=== PATIENT | male | born 1990 | race Caucasian/White ===

== ENCOUNTER 2017-05-31 06:13 | Day surgery (SDC) | payer OTHER ==
[2017-05-30 09:59] VITALS: BMI 26.9
[2017-05-31] MEDS ORDERED: COCAINE HCL 4% TOPICAL SOLUTION 4 ML BOTTLE TP ONE ×2 (07:25→08:37)
[2017-05-31] MEDS ORDERED: LIDOCAINE 1%/EPI 1:100000 (20 ML MULTI DOSE VIAL) ONE (07:26)
[2017-05-31] MEDS ORDERED: BACITRACIN 15 GM TUBE TOPICAL OINTMENT ONE (07:27)
--- NOTE | 2017-05-31 08:02 | HP ---
Admitting History and Physical - Admission Chief Complaint: Nasal congestion, chronic History of Present Illness: He has had multiple meds and is not significantly allergic. 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, enlarged turbinates and maxillary sinus inflammation History Source: Patient, Medical Record Limitations to Obtaining History: No Limitations - Past Medical History Psych: Yes: Depression ENT: Yes: Other (Nasal blockage) - Smoking History Smoking history: Never smoked - Alcohol/Substance Use Hx Alcohol Use: No Home Medications - Allergies Allergies/Adverse Reactions: Allergies Allergy/AdvReac Type Severity Reaction Status Date / Time No Known Allergies Allergy Verified 05/31/17 07:14 - Home Medications Home Medications: Ambulatory Orders Paroxetine HCl [Paxil -] 20 mg PO DAILY 05/30/17 Physical Examination Vital Signs: Vital Signs Temperature 98.2 F 05/31/17 07:14 Pulse Rate 67 05/31/17 07:14 Respiratory Rate 20 05/31/17 07:14 Blood Pressure 119/71 05/31/17 07:14 O2 Sat by Pulse Oximetry (%) 99 05/31/17 07:06 Constitutional: Yes: Well Nourished, No Distress, Calm Eyes: Yes: WNL HENT: Yes: Other (deviatd septum, enlarged turbinates) Neck: Yes: WNL Cardiovascular: Yes: WNL Respiratory: Yes: WNL Gastrointestinal: Yes: WNL Extremities: Yes: WNL Problem List - Problems (1) Deviated nasal septum Assessment/Plan: surgery to improve Code(s): J34.2 - DEVIATED NASAL SEPTUM (2) Nasal turbinate hypertrophy Assessment/Plan: surgery to improve Code(s): J34.3 - HYPERTROPHY OF NASAL TURBINATES (3) Sinusitis Assessment/Plan: surgery to improve Code(s): J32.9 - CHRONIC SINUSITIS, UNSPECIFIED
[2017-05-31] MEDS ORDERED: PROPOFOL 20 ML ONE ×3 (08:04→08:19)
[2017-05-31] MEDS ORDERED: ROCURONIUM BROMIDE 50 MG/5 ML VIAL ONE (08:04)
[2017-05-31] MEDS ORDERED: LIDOCAINE HCL/PF 2% SDV 5ML VIAL ONE (08:04)
[2017-05-31] MEDS ORDERED: MIDAZOLAM HCL 2 MG/2 ML SINGLE DOSE VIAL ONE (08:04)
[2017-05-31] MEDS ORDERED: LIDOCAINE 1%/EPI 1:100000 (50 ML MULTI DOSE VIAL) INF ONE (08:37)
[2017-05-31] MEDS ORDERED: ceFAZolin SODIUM 1 GM VIAL ONE (08:37)
[2017-05-31] MEDS ORDERED: ceFAZolin SODIUM 1 GM VIAL IVPB ONE (08:37)
[2017-05-31] MEDS ORDERED: GLYCOPYRROLATE 0.2 MG/1 ML VIAL ONE (08:41)
[2017-05-31] MEDS ORDERED: NEOSTIGMINE METHYLSULFATE 0.5 MG/ML - 10 ML MDV ONE (08:41)
[2017-05-31] MEDS ORDERED: DEXAMETHASONE SOD PHOSPHATE 4 MG/1 ML VIAL ONE ×2 (08:41→08:42)
[2017-05-31] MEDS ORDERED: BACITRACIN 15 GM TUBE TOPICAL OINTMENT TP ONE (09:38)
[2017-05-31] MEDS ORDERED: IBUPROFEN 800 MG/8 ML IJ IVPB PRN (10:10)
[2017-05-31] MEDS ORDERED: oxyCODONE HCL 5 MG TABLET PO PRN (10:10)
[2017-05-31] MEDS ORDERED: ONDANSETRON 4 MG/2 ML VIAL IVPUSH PRN (10:10)
[2017-05-31] MEDS ORDERED: LACTATED RINGERS SOLUTION 1,000 ML IV SCH (10:15)
[2017-05-31 11:09] VITALS: TEMP 98.3
[2017-05-31 13:13] VITALS: BP 130/82; PULSE 75
--- NOTE | 2017-06-01 15:00 | PATH ---
Surgical Pathology Report Patient Name: FARHAD CURRIE Med. Rec. #: [id number] /Age/Gender: 1990 (Age: 26) / M Account: [id number] Location: [facility] SURGICAL Taken: 05/31/2017 Received: 05/31/2017 Reported: 06/01/2017 Physicians: Andres Hahn M.D. Specimen(s) Received A: NASAL SEPTUM B: ETHMOID TISSUE Clinical History Deviated nasal septum, hypertrophic nasal turbinates, chronic sinusitis, ethmoidal chronic sinusitis Final Diagnosis A. NASAL SEPTUM, SEPTOPLASTY: BENIGN CARTILAGE. B. ETHMOID, BILATERAL ANTERIOR ETHMOIDECTOMY: FRAGMENTS OF RESPIRATORY MUCOSA WITH CHRONIC SINUSITIS AND BONE. Electronically Signed Mariel Morocho M.D. Gross Description A. Received in formalin labeled "nasal septum," is a 1.5 x 1.2 x 0.2 cm aggregate of watters fragments of cartilage. The specimen is entirely submitted in one cassette. B. Received in formalin labeled "ethmoid," is a 1.3 x 1.0 x 0.2 cm aggregate of watters soft tissue fragments. The specimen is entirely submitted in one cassette. 05/31/201705/31/2017
--- NOTE | 2017-06-09 16:09 | OP ---
DATE OF OPERATION: 05/31/2017 PREOPERATIVE DIAGNOSES: 1. Deviated septum. 2. Turbinate hypertrophy. 3. Chronic maxillary sinusitis. 4. Ethmoid sinusitis. SURGEON: Andres Hahn M.D. ANESTHESIA: General. PROCEDURE: Septoplasty, bilateral turbinate outfracture and cautery, bilateral maxillary antrostomy and anterior ethmoidectomy. INDICATIONS FOR OPERATION: This is a gentleman with the history of chronic nasal congestion, worse on the right than the left with chronic sinusitis refractory to medical treatment. PROCEDURE: The patient was brought to the operating room and placed under general anesthesia. The [employer] Navigation Machine was calibrated on its base and he was prepped and draped and his nose was decongested with cottonoids with 4% cocaine. His nose was injected with 1% lidocaine with 1:100,000 epinephrine. A 25-gauge needle into the septum, inferior turbinates and middle turbinates in the lateral nasal wall. Prior to the beginning of the surgery, his nose was examined and significant deviation of the septum was noted to the right side, which was also confirmed on the CT guidance machine, as well as preop examination. The procedure was performed initially starting on the left side using a left hemitransfixion incision. A mucoperichondrial flap was elevated using the Hardy elevator along the left side until a flap was fully raised and then the right mucoperichondrial flap was elevated to the same incision on the left side. After elevating the cartilage, the areas of the deviation, which was inferior and mid , were resected using a combination of the Viola swivel knife, the cartilage knife , and a 4 mm osteotome along the maxillary crest. A piece of the cartilage was placed back into the defect and 2 separate mattress sutures were placed with the knots on the left side using 4-0 chromic. The hemitransfixion incision was closed using 3 interrupted 4-0 chromic sutures. Then at that point, the middle turbinate on the right side was medialized and the middle turbinate was incised and the lateral portion of the charisse bullosa on the right side was resected using the [employer] microdebrider, which was used while it was being guided by the [employer]. After resection of the lateral portion of the charisse bullosa on the right middle turbinate, the bulla was entered and the anterior ethmoid was opened into the clear meatus. This was carried back not further than the ground lamella. The uncinate was peeled forward using the seeker and then the Medtronic balloon was placed into the maxillary sinus and 2 separate insufflations of 5 seconds a piece were performed widening the maxillary ostia. A cottonoid was placed into the ethmoid cavity on the right side. Then the left middle turbinate was medialized and incised with a sickle knife and the lateral portion of the charisse bullosa was resected. The anterior ethmoid was entered and a portion of the anterior ethmoid was resected not further back than the ground lamella. The uncinate was peeled forward using a maxillary seeker and the Medtronic guided balloon was placed into the maxillary sinus and 2 separate insufflations were performed. A 4% cocaine pledget was placed into the ethmoid cavity on the left side. Then the right inferior turbinate was outfractured using a long nasal speculum and then the left inferior turbinate was outfractured. Then 3 separate passes of the bipolar LMed needle cautery was performed on the mucosa of the right inferior turbinate and then subsequently 3 separate passes were performed on the left inferior turbinate. The cottonoids were removed and standard Nasopore packing with bacitracin was placed in both ethmoid cavities. Bacitracin was also instilled in the nose and the nose was irrigated and suctioned. Patient was then extubated in the operating room and brought to the recovery room in stable condition. Kassie [id number] MTDD
== END 2017-05-31 13:05 | disposition home or self-care (01) ==
LOC: JASU-SURG 06:13
PROVIDERS: ATTEND Otolaryngology
PROC: 09BV8ZZ Excision of Left Ethmoid Sinus, Via Natural or Artificial Opening Endoscopic (ICD-10-PCS; 2017-05-31)
PROC: 09BU8ZZ Excision of Right Ethmoid Sinus, Via Natural or Artificial Opening Endoscopic (ICD-10-PCS; 2017-05-31)
PROC: 8E09XBZ Computer Assisted Procedure of Head and Neck Region (ICD-10-PCS; 2017-05-31)
PROC: 095L8ZZ Destruction of Nasal Turbinate, Via Natural or Artificial Opening Endoscopic (ICD-10-PCS; 2017-05-31)
PROC: 8E09XBZ Computer Assisted Procedure of Head and Neck Region (ICD-10-PCS; principal; 2017-05-31 08:00)
DX: J34.2 Deviated nasal septum (principal); J34.3 Hypertrophy of nasal turbinates; J32.2 Chronic ethmoidal sinusitis; J32.0 Chronic maxillary sinusitis
CPT/HCPCS: 88304-TC; 94760